=== PATIENT | male | born 1990 | race African-American/Black ===

== ENCOUNTER 2020-10-31 15:36 | Observation (INO) | payer OTHER ==
[~2020-10-31] VITALS: Ht 188 cm; Wt 140.6 kg
[2020-11-01 09:17] LABS: HEMOGLOBIN 12.9 gm/dl (14.0-17.5); RED BLOOD COUNT 4.91 M/UL (4.20-5.50); WHITE BLOOD COUNT 7.6 K/UL (4.5-11.0)
[2020-11-01 09:51] LABS: BUN/CREATININE RATIO 9 (0-10)
[2020-11-01] MEDS ORDERED: HYDROCODON-ACE1 EAC4 PO (15:50)
--- NOTE | 2020-11-01 16:32 | NUR ---
CALLED AND SPOKE WITH SHAHNAZ WITH MEDICAL AT [facility]. GAVE HER A REPORT ON PT STATUS AND FOLLOW UPS. SHE STATED THAT PATIENT ALREADY HAD PAIN MEDICINE THERE FOR HIM WHEN HE RETURNED AND DID NOT NEED A NEW SCRIPT. DR SERVIN WAS NOTIFIED. PT AND GUARDS EDUCATED ON POST OP CARE AND IV WAS REMOVED.
[2020-12-07] MEDS ORDERED: ZOLOFT50 MG PO (10:18)
[2020-12-07] MEDS ORDERED: [UNRECOGNIZED DRUG - OTHER] TP (10:18)
[2020-12-07] MEDS ORDERED: COLACE 100MG C100 MG PO (10:19)
[2020-12-07] MEDS ORDERED: MOBIC7.5 MG PO (10:20)
[2020-12-07] MEDS ORDERED: CLARITIN10 M2 PO (10:20)
[2020-12-07] MEDS ORDERED: OMEPRAZOLE20 MG PO (10:20)
[2020-12-07] MEDS ORDERED: NORVASC5 MG PO (10:21)
== END 2020-11-01 17:35 | disposition other institution (70) ==
LOC: ER1 15:36 → CDU 21:42 → M/S 21:42
PROVIDERS: Nurse Practitioner Family; ADMIT Orthopaedic Surgery
PROC: 0QSGXZZ Reposition Right Tibia, External Approach (ICD-10-PCS; principal; 2020-11-01 14:30)
DX: S82.851A Displaced trimalleolar fracture of right lower leg, initial encounter for closed fracture (principal); I10 Essential (primary) hypertension; E66.9 Obesity, unspecified; Z68.39 Body mass index [BMI] 39.0-39.9, adult; Z20.822 Contact with and (suspected) exposure to COVID-19; Z79.899 Other long term (current) drug therapy; Y04.0XXA Assault by unarmed brawl or fight, initial encounter; Y92.89 Other specified places as the place of occurrence of the external cause
CPT/HCPCS: 12001; 36415; 70450; 70486; 71045; 72125; 73590; 73600; 73610; 80053; 85027; 85610; 85730; 94760; 96374; 96375; 96376; 99285; C1713; G0378; J1170; J2001; J2250; J2270; J2704; J3010; J7120; U0002

== ENCOUNTER → 2020-12-07 | Day surgery (SDC) | payer OTHER ==
[~2020-12-07] MED LIST: CLARITIN10 M2 PO; COLACE 100MG C100 MG PO; HYDROCODON-ACE1 EAC4 PO; MOBIC7.5 MG PO; NORVASC5 MG PO; OMEPRAZOLE20 MG PO; ZOLOFT50 MG PO; [UNRECOGNIZED DRUG - OTHER] TP
== END | disposition home or self-care (01) ==
LOC: OR 08:55
DX: S82.851A Displaced trimalleolar fracture of right lower leg, initial encounter for closed fracture (principal); S93.431A Sprain of tibiofibular ligament of right ankle, initial encounter; I10 Essential (primary) hypertension; K21.9 Gastro-esophageal reflux disease without esophagitis; Y04.0XXA Assault by unarmed brawl or fight, initial encounter; Z20.822 Contact with and (suspected) exposure to COVID-19
CPT/HCPCS: 73610; 76000; C1713; J0592; J0690; J1100; J1170; J2001; J2250; J2400; J2704; J2795; J3010; J7120; U0002